=== PATIENT | male | born 1950 | race Caucasian/White ===

== ENCOUNTER 2022-03-06 15:36 | Inpatient (IN) | payer OTHER ==
[~2022-03-06] VITALS: Ht 170.2 cm; Wt 53.3 kg
[2022-03-07 17:16] LABS: Base Excess Venous -0.2 mmol/L; PCO2 Venous 38.4 mmHg (38-42); pH Blood Venous 7.41 (7.34-7.37)
[2022-03-07 17:17] LABS: BASOPHILS ABSOLUTE AUTO 0.01 K/mm3 (0.00-0.23); BASOPHILS PERCENT AUTO 0 % (0-2); EOSINOPHILS ABSOLUTE AUTO 0.01 K/mm3 (0.00-0.68); EOSINOPHILS PERCENT AUTO 0 % (0-6); Hematocrit 25.7 % (37.0-53.0); Hemoglobin 8.9 g/dL (13.5-17.5); IMMATURE GRAN ABSOLUTE AUTO 0.05 K/mm3 (0.00-0.10); IMMATURE GRAN PERCENT AUTO 1 % (0-1); LYMPHOCYTES ABSOLUTE AUTO 0.74 K/mm3 (0.84-5.20); LYMPHOCYTES PERCENT AUTO 17 % (21-46); MONOCYTES ABSOLUTE AUTO 0.34 K/mm3 (0.16-1.47); MONOCYTES PERCENT AUTO 8 % (4-13); Mean Corpuscular HGB 34.6 pg (26.0-34.0); Mean Corpuscular HGB Conc 34.6 g/dL (31.5-36.5); Mean Corpuscular Volume 100 fL (80-100); Mean Platelet Volume 8.9 fL (9.1-12.4); NEUTROPHILS ABSOLUTE AUTO 3.34 K/mm3 (1.96-9.15); NEUTROPHILS PERCENT AUTO 74 % (41-73); NRBC ABSOLUTE 0.02 K/mm3 (0.00-0.02); NRBC Auto 0.4 /100 WBC (0.0-0.2); RDW Coefficient Variation 18.9 % (11.7-14.2); RDW Standard Deviation 66.5 fL (35.1-46.3); Red Blood Cell Count 2.57 M/mm3 (4.30-5.90); White Blood Cell Count 4.49 K/mm3 (4.00-11.30)
[2022-03-07 17:23] LABS: Platelet Count 30 K/mm3 (150-400)
[2022-03-07 17:38] LABS: Albumin/Globulin Ratio 0.5 (0.8-1.8); Bilirubin, Total 6.4 mg/dL (0.1-1.0); Bun/Creatinine Ratio 23.6 (12.0-20.0); Calcium, Blood 9.9 mg/dL (8.5-10.1); Creatinine, Blood 1.06 mg/dL (0.60-1.20); Globulin, Blood 3.9 g/dL (2.2-4.0); Potassium, Blood 3.8 mmol/L (3.5-5.5); Total Protein, Blood 5.9 g/dL (6.4-8.2)
--- NOTE | 2022-03-07 18:50 | NUR ---
ARRIVAL TO PCU/SHIFT SUMMARY PATIENT ARRIVED AT 1530 AND ARRIVED TO ROOM VIA GURNY AND TRANSFER TO PC BED SLIDER. VSS. PATIENT HAD BLOOD INFUSING UPON ARRIVAL. PATIENT HAD FERRER UPON ARRIVAL. PATIENT RESPOND TO PAIN, AND MOANS AND GROANS. ABLE TO MAKE OUT SOME WORDS PATIENT SAYS, BUT UNABLE TO KEEP A CONVERSATION. PATIENT CAN FOLLOW SOME COMMANDS, WAS ABLE TO SQUEEZE MY HANDS AND OPEN EYES PARTIALLY. PATIENT FACES SCORE WAS AN 8, RECEIVED PAIN MEDICATION PER EMAR AND SCORE WAS A 4. PATIENT LUNG SOUNDS ARE CLEAR ON RA. PATIENT HAS MULTIPLE BRUSES, SCABS T/0. PATIENT HAS PRESSURE SORE TO COCCYX. PATIENT HAS HAD MULTPLE RECENT FALLS. PER GRANDSON, WHO IS PATIENT POINT OF CONTACT, PATIENT DRINKS 2-3 BEERS A NIGHT. THIS RN DISCUSSED CODE STATUS WITH THE GRANDSON AND STEP DAUGHTER. PATIENT HAS FLUIDS INFUSING, SEE EMAR. FAMILY IS AT BEDSIDE. NPO. CALL LIGHT WITHIN REACH AND BED IN LOWEST POSITION. WILL GIVE REPORT TO HAND OFF ONCOMING.
[2022-03-07 19:23] LABS: Prothrombin Time Results 27.2 Sec (9.7-11.5)
[2022-03-07 19:24] LABS: International Normalized Ratio 2.77
--- NOTE | 2022-03-07 21:00 | NUR ---
ASSUMED CARE/CALL TO MD ASSUMED CARE AT 0. PT RESPONDS TO VERBAL STIMULI. OPENS EYES AND LOOKS TOWARD SOUND. DOES NOT TRACK NURSE OR FOLLOW COMMANDS. WILL MOAN AND YELL OUT WHEN ASKED QUESTIONS. PT ABLE TO SAY SINGLE WORDS. GROSS MOVEMENT IN UPPER EXTREMITES. PT WILL ONLY TENSE BLE, AND LIFT ARMS WITH HANDS EXTENDED DOWNWARD WITH NOXIOUS STIMULI. MEDICATED FOR PAIN W/ MINIMAL IMPROVEMENT NOTED. CIWA SCORED 19. MEDICATED WITH ATIVAN 1MG. HR SR BBB 70'S. SBP 100'S. PT ON 2L NC WITH SPO2 GREATER THAN 92%. LUNG SOUNDS DIMINISHED T/O AND VERY SHALLOW RESPIRATIONS NOTED. DRSG CHANGED ON COCCYX WOUNDS. FERRER CATH PRESENT ON ADMISSION. FERRER CHANGED AND UA SENT PER POLICY. NEW FERRER PATENT AND DRAINING TO GRAVITY. PROTONIX, SANDOSTATIN, AND LR INFUSING. CALL TO DR LIM AT 2053 REGARDING LACTULOSE ENEMA ORDERS AND POTENTIAL GI BLEED. ORDER RECEIVED TO CONTINUE WITH LACTULOSE. RECTAL TUBE PLACED AND MEDICATION GIVEN. MINIMAL JOHNATHAN BLOOD NOTED AFTER RECTAL TUBE INSERTION.
[2022-03-07 22:42] LABS: Source, Urine Foley catheter
[2022-03-07 22:47] LABS: Blood, Urine 5+ (Neg); Glucose Qualitative, Urine Neg (Neg); Ketones, Urine 1+ (Neg); Leukocyte Esterase, Urine 2+ (Neg); Nitrite, Urine Neg (Neg); Protein, Urine 3+ (Neg); Urobilinogen, Urine 3+ (Normal)
[2022-03-07 22:58] LABS: U Amphetamine Screen Not Detected; U Barbituate Screen Not Detected; U Benzodiazapine Screen DETECTED; U Buprenorphine Screen Not Detected; U Cannabinoids Screen Not Detected; U Cocaine Screen Not Detected; U Methadone Screen Not Detected; U Methamphetamine Screen Not Detected; U Opiates Screen DETECTED; U Oxycodone Screen Not Detected; U Phencyclidine Screen Not Detected; U Propoxyphene Screen Not Detected
[2022-03-07 22:59] LABS: Appearance, Urine Cloudy (Clear); Bilirubin, Urine 2+ (Neg); Color, Urine Amber (P-Yellow)
[2022-03-07 23:00] LABS: Amorphous Light (0-Heavy); Bacteria Few /hpf; Red Blood Cells, Urine TNTC /hpf (0-2); Squamous Epithelial Cells Rare /hpf (Few)
--- NOTE | 2022-03-08 06:27 | NUR ---
SHIFT SUMMARY NO ACUTE CHANGES T/O NIGHT. PT CONTINUES TO MOAN AND YELL OUT. CIWA SCORES 9-19 THIS SHIFT. MEDICATED WITH ATIVAN X2 AND FENTANYL X1 FOR CIWA AND CPOT SCORE. LACTULOSE ENEMA GIVEN TWICE. RECTAL TUBE REMAINS IN PLACE TO DRAIN ENEMAS. NO OTHER CHANGES THIS SHIFT.
--- NOTE | 2022-03-08 06:45 | NUR ---
UPDATE TO FAMILY STEP DAUGHTER RODGER CALLED FOR AN UPDATE. INFORMATION GIVEN. RODGER REQUESTED A CALL FROM THE DR TODAY. WILL PASS ON TO DAYSHIFT.
[2022-03-08 08:20] LABS: BASOPHILS ABSOLUTE AUTO 0.01 K/mm3 (0.00-0.23); BASOPHILS PERCENT AUTO 0 % (0-2); EOSINOPHILS ABSOLUTE AUTO 0.01 K/mm3 (0.00-0.68); EOSINOPHILS PERCENT AUTO 0 % (0-6); Hematocrit 24.1 % (37.0-53.0); Hemoglobin 8.6 g/dL (13.5-17.5); IMMATURE GRAN ABSOLUTE AUTO 0.03 K/mm3 (0.00-0.10); IMMATURE GRAN PERCENT AUTO 1 % (0-1); LYMPHOCYTES ABSOLUTE AUTO 0.51 K/mm3 (0.84-5.20); LYMPHOCYTES PERCENT AUTO 13 % (21-46); MONOCYTES ABSOLUTE AUTO 0.27 K/mm3 (0.16-1.47); MONOCYTES PERCENT AUTO 7 % (4-13); Mean Corpuscular HGB 35.1 pg (26.0-34.0); Mean Corpuscular HGB Conc 35.7 g/dL (31.5-36.5); Mean Corpuscular Volume 98 fL (80-100); Mean Platelet Volume 9.6 fL (9.1-12.4); NEUTROPHILS ABSOLUTE AUTO 3.21 K/mm3 (1.96-9.15); NEUTROPHILS PERCENT AUTO 80 % (41-73); RDW Coefficient Variation 20.1 % (11.7-14.2); RDW Standard Deviation 68.4 fL (35.1-46.3); Red Blood Cell Count 2.45 M/mm3 (4.30-5.90); White Blood Cell Count 4.04 K/mm3 (4.00-11.30)
[2022-03-08 08:27] LABS: Platelet Count 26 K/mm3 (150-400)
[2022-03-08 08:32] LABS: Albumin, Blood 1.8 g/dL (3.4-5.0); Albumin/Globulin Ratio 0.5 (0.8-1.8); Bilirubin, Total 5.8 mg/dL (0.1-1.0); Bun/Creatinine Ratio 23.8 (12.0-20.0); Calcium, Blood 9.6 mg/dL (8.5-10.1); Creatinine, Blood 1.01 mg/dL (0.60-1.20); Globulin, Blood 3.6 g/dL (2.2-4.0); Magnesium, Blood 1.8 mg/dL (1.6-2.4); Potassium, Blood 3.3 mmol/L (3.5-5.5); Total Protein, Blood 5.4 g/dL (6.4-8.2)
--- NOTE | 2022-03-08 10:30 | NUR ---
ASSUMED PT CARE AT 0715 PT LYING IN BED. MINIMALLY RESPONSIVE. MOANS/GROANS TO STIMULATION. UPON CALLING PT'S NAME HE BARELY OPENED HIS EYES, NOT ABLE TO FOLLOW COMMANDS. IT APPEARED HE ATTEMPTED TO TRACK BY TURNING HIS HEAD TO LOOK WHERE THE VERBAL STIMULI WAS COMING FROM, BUT UNSURE IF THIS WAS COINCIDENTAL. VSS WITH NSR HR 70'S. PT PROTECTING OWN AIRWAY AT THIS TIME ON ROOM AIR. PT IS VERY EMACIATED APPEARING WITH FRAGILE SKIN WITH SCATTERED BRUISING AND SKIN TEARS T/O. UNSTAGEABLE PRESSURE ULCER NOTED TO COCCYX WITH SURROUNDING SHEARING INJURIES R/T FALL PT SUSTAINED AT HOME PRIOR TO HOSPITAL ADMISSION. PT HAS BRUISING NOTED TO MID LOWER BACK ALSO MOST LIKELY SECONDARY TO FALL. PER GRANDSON PT WAS CONTINENT OF BOTH BOWEL AND BLADDER; THEREFORE SKIN BREAKDOWN IS MOST LIKELY R/T THE FALL. BILATERAL FEET ALSO HAVE SKIN IMPAIREMENT WHICH APPEAR TO HAVE BEEN BLISTERS OR MOORE THEY HAVE ROLLED EDGES. ALL WOUNDS WERE CLEANSED AND DRESSED. RECTAL TUBE IS IN PLACE AND DRAINING BROWN LIQUID STOOL. FERRER CATHETER IS PATENT AND DRAINING MINIMAL AMOUNTS OF DARK NAOMI COLORED URINE WITH SEDIMENT NOTED. GRANDSON IS AT BEDSIDE; NOTIFIED PROVIDER REGARDING THEIR WISHES TO CHANGE HIS CODE STATUS TO DNR IN WHICH ORDER WAS GRANTED. DR. TEJADA STATED SHE WOULD BE BY TO DISCUSS PLAN OF CARE WITH FAMILY. CHIEF LIBRARIAN BRANCH AT BEDSIDE. WILL CONTINUE TO MONITOR.
--- NOTE | 2022-03-08 11:18 | NUR ---
DR. TEJADA AT BEDSIDE SPOKE WITH FAMILY REGARDING CODE STATUS; DECISION WAS MADE TO GO DNR COMFORT. DR. TEJADA TO ENTER COMFORT MEDS. STATUS CHANGE TO MEDICAL FLOOR WITH NO TELEMETRY
--- NOTE | 2022-03-08 12:30 | NUR ---
New PC referral and comfort care order received this am. Current orders and plan of care reviewed with RN. Pt unresponsive and in no distress. Family had left for lunch. Volunteer to visit this afternoon. Plan am visit to assess s/s and offer support.
--- NOTE | 2022-03-08 13:59 | NUR ---
FAMILY JUST LEFT. WOULD LIKE TO BE NOTIFIED WHEN PT PASSES
--- NOTE | 2022-03-08 16:18 | NUR ---
END OF SHIFT SUMMARY PT REMAINS ON COMFORT CARE AT THIS TIME. NO SIGNIFICANT CHANGES. APPEARED TO HOLLER OUT MORE TOWARD END OF SHIFT; THEREFORE, MEDICATED WITH ATIVAN AND ROXONAL PER ORDERS, WHICH APPEAR EFFECTIVE. NO FAMILY AT BEDSIDE AT THIS TIME. PALLIATIVE CARE DOING ROUNDS. PT APPEARS COMFORTABLE. WILL CONTINUE TO MONITOR UNTIL REPORT IS HANDED OFF TO ONCOMING RN.
--- NOTE | 2022-03-09 03:51 | NUR ---
FINAL DISCHARGE PATIENT HR REACHED 30s. THIS RN INTO ROOM AT BEDSIDE WITH PATIENT. PATIENT IS COMFORTABLE, NO AGONAL BREATHING DURING TIME OF PASSING. TIME OF 031. TWO RN VERIFICATION COMPLETED. INTELLIGENCE OPERATIONS SPECIALIST PLACED CALL TO FAMILY AND FAMILY EN ROUTE TO SEE THE PATIENT. NOTIFIED HOSPITALIST. POST MORTEM CARE COMPLETED.
--- NOTE | 2022-03-09 05:49 | NUR ---
UPDATE FAMILY AT BEDSIDE AT 0900. PHONE NUMBER FOR HOME GIVEN TO PATIENT'S FAMILY. PATIENT'S GRANDSON PICKED UP ALL BELONGINGS.
== END 2022-03-09 07:31 | DRG 441 ==
LOC: ICUE 15:36 → PCU 03-07 15:26
PROVIDERS: Family Medicine; Internal Medicine; ADMIT Internal Medicine
DX: K76.82 Hepatic encephalopathy (principal); G92.8 Other toxic encephalopathy; I21.A1 Myocardial infarction type 2; L89.153 Pressure ulcer of sacral region, stage 3; E87.0 Hyperosmolality and hypernatremia; E87.20 Acidosis, unspecified; K92.2 Gastrointestinal hemorrhage, unspecified; F10.139 Alcohol abuse with withdrawal, unspecified; K70.9 Alcoholic liver disease, unspecified; Z51.5 Encounter for palliative care; Z66 Do not resuscitate; D64.9 Anemia, unspecified; R77.8 Other specified abnormalities of plasma proteins; D69.6 Thrombocytopenia, unspecified; I48.0 Paroxysmal atrial fibrillation; E87.6 Hypokalemia; Z20.822 Contact with and (suspected) exposure to COVID-19; T14.8XXA Other injury of unspecified body region, initial encounter; W19.XXXA Unspecified fall, initial encounter; B95.7 Other staphylococcus as the cause of diseases classified elsewhere; Z87.891 Personal history of nicotine dependence
CPT/HCPCS: 36415; 80053; 81001; 82140; 82803; 83605; 83735; 84484; 85025; 85610; 87077; 87086; 87186; 93306; A9270; C1751; C9113; J0696; J2060; J2354; J3010; J3411; J7050; J7120